=== PATIENT | male | born 1980 | race Caucasian/White ===

== ENCOUNTER 2018-06-13 05:20 | Emergency (ER) | payer MEDICAID ==
[2018-06-13 05:55] LABS: ADD MAN DIFF? NO
[2018-06-13 06:00] LABS: BASOPHILS % 0.4 % (0.0-2.0); EOSINOPHILS # 0.2 10^3/ul (0.0-0.5); EOSINOPHILS % 2.4 % (0.0-7.0); HEMATOCRIT 44.9 % (42.0-52.0); HEMOGLOBIN 15.3 g/dl (14.0-18.0); LYMPHOCYTES # 1.8 10^3/ul (0.8-2.9); LYMPHOCYTES % 22.1 % (15.0-51.0); MEAN CORPUSCULAR HEMOGLOBIN 30.1 pg (29.0-33.0); MEAN CORPUSCULAR HGB CONC 34.1 g/dl (32.0-37.0); MEAN CORPUSCULAR VOLUME 88.4 fl (82.0-101.0); MEAN PLATELET VOLUME 10.9 fl (7.4-10.4); MONOCYTE # 0.5 10^3/ul (0.3-0.9); MONOCYTES % 6.5 % (0.0-11.0); NEUTROPHIL # 5.4 10^3/ul (1.6-7.5); NEUTROPHILS % 68.1 % (39.0-77.0); PLATELET COUNT 128 10^3/UL (140-415); POSITIVE DIFF @See below; RED BLOOD COUNT 5.08 10^6/ul (4.70-6.10); RED CELL DISTRIBUTION WIDTH 13.2 % (11.5-14.5)
[2018-06-13 06:27] LABS: ANION GAP 15 (5-13); BLOOD UREA NITROGEN 13 mg/dl (7-20); CALCIUM 9.5 mg/dl (8.4-10.2); CARBON DIOXIDE 26 mmol/L (21-31); CHLORIDE 99 mmol/L (97-110); CREATININE 0.61 mg/dl (0.61-1.24); Estimated GFR > 60 mL/min (>60); GLUCOSE 118 mg/dl (70-220); POTASSIUM 3.2 mmol/L (3.5-5.1); SODIUM 140 mmol/L (135-144)
[2018-06-13] MEDS: ASPIRIN 81 MG TAB PO (06:27)
[2018-06-13] MEDS: LORAZEPAM 1 MG TAB PO (06:27)
[2018-06-13 06:34] LABS: ADD UMIC NO; UR ASCORBIC ACID NEGATIVE (NEGATIVE); UR BILIRUBIN (Dip) NEGATIVE (NEGATIVE); UR BLOOD (Dip) NEGATIVE (NEGATIVE); UR CLARITY CLEAR (CLEAR); UR COLOR YELLOW (YELLOW); UR GLUCOSE (Dip) NEGATIVE (NEGATIVE); UR KETONES (Dip) TRACE mg/dL (NEGATIVE); UR LEUKOCYTE ESTERASE (Dip) NEGATIVE Leu/ul (NEGATIVE); UR NITRITE (Dip) NEGATIVE (NEGATIVE); UR SPECIFIC GRAVITY (Dip) 1.013 (1.003-1.030); UR TOTAL PROTEIN (Dip) NEGATIVE (NEGATIVE); UR UROBILINOGEN (Dip) NEGATIVE (NEGATIVE)
[2018-06-13 06:38] LABS: TROPONIN-I < 0.012 ng/ml (0.000-0.120)
[2018-06-13 06:59] LABS: ALANINE AMINOTRANSFERASE 111 IU/L (13-69); ALBUMIN 3.9 g/dl (3.3-4.9); ALKALINE PHOSPHATASE 122 IU/L (42-121); ASPARTATE AMINO TRANSFERASE 262 IU/L (15-46); BILIRUBIN,INDIRECT 1.6 mg/dl (0-1.1); BILIRUBIN,TOTAL 1.6 mg/dl (0.2-1.3); TOTAL PROTEIN 7.5 g/dl (6.1-8.1)
[2018-06-13 07:07] LABS: AMPHETAMINE/METHAMPHETAMINE Negative (NEGATIVE); BARBITURATES Negative (NEGATIVE); BENZODIAZEPINES Negative (NEGATIVE); CANNABINOIDS Negative (NEGATIVE); COCAINE Negative (NEGATIVE); OPIATES Negative (NEGATIVE)
[2018-06-13] MEDS: POTASSIUM CHLORIDE (SR) 20 MEQ TAB PO (07:17)
[2018-06-13] MEDS: MAGNESIUM OXIDE 400 MG TAB PO (07:28)
[2018-06-13 07:58] LABS: LIPASE 73 U/L (23-300)
[2018-06-13 08:48] LABS: TROPONIN-I < 0.012 ng/ml (0.000-0.120)
== END 2018-06-13 09:53 | disposition home or self-care (01) ==
LOC: E/R 05:20
DX: R07.9 Chest pain, unspecified (principal); K70.10 Alcoholic hepatitis without ascites; R94.5 Abnormal results of liver function studies; F10.230 Alcohol dependence with withdrawal, uncomplicated; F17.210 Nicotine dependence, cigarettes, uncomplicated
CPT/HCPCS: 36415; 71045; 76705; 80048; 80076; 80307; 81003; 83690; 84484; 85025; 93005; 99285-25

== ENCOUNTER 2018-11-17 18:09 | Emergency (ER) | payer MEDICAID ==
[2018-11-17] MEDS: IBUPROFEN 800 MG TAB PO (20:27)
== END 2018-11-17 21:32 | disposition home or self-care (01) ==
LOC: E/R 18:09
DX: R07.89 Other chest pain (principal); Z87.891 Personal history of nicotine dependence
CPT/HCPCS: 71045; 93005; 99284-25

== ENCOUNTER → 2018-12-30 | Emergency (ER) | payer OTHER, MEDICAID ==
[2018-12-30 07:17] LABS: ADD MAN DIFF? NO
[2018-12-30 07:20] LABS: WHITE BLOOD COUNT 6.5 10^3/ul (4.8-10.8)
[2018-12-30 07:20] LABS: BASOPHILS % 0.6 % (0.0-2.0); EOSINOPHILS # 0.2 10^3/ul (0.0-0.5); EOSINOPHILS % 3.2 % (0.0-7.0); HEMATOCRIT 44.5 % (42.0-52.0); HEMOGLOBIN 14.7 g/dl (14.0-18.0); LYMPHOCYTES # 1.9 10^3/ul (0.8-2.9); LYMPHOCYTES % 28.6 % (15.0-51.0); MEAN CORPUSCULAR HEMOGLOBIN 28.6 pg (29.0-33.0); MEAN CORPUSCULAR VOLUME 86.6 fl (82.0-101.0); MEAN PLATELET VOLUME 11.3 fl (7.4-10.4); MONOCYTE # 0.5 10^3/ul (0.3-0.9); MONOCYTES % 8.3 % (0.0-11.0); NEUTROPHIL # 3.8 10^3/ul (1.6-7.5); NEUTROPHILS % 58.7 % (39.0-77.0); PLATELET COUNT 241 10^3/UL (140-415); RED BLOOD COUNT 5.14 10^6/ul (4.70-6.10); RED CELL DISTRIBUTION WIDTH 13.3 % (11.5-14.5)
[2018-12-30] MEDS: SOD CHLORIDE 0.9% 1,000 ML IV (07:23)
[2018-12-30] MEDS: ONDANSETRON 4 MG INJ IV (07:23)
[2018-12-30] MEDS: FAMOTIDINE 20 MG INJ IV (07:23)
[2018-12-30 07:39] LABS: ALANINE AMINOTRANSFERASE 17 IU/L (13-69); ALBUMIN 4.1 g/dl (3.3-4.9); ALKALINE PHOSPHATASE 91 IU/L (42-121); AMYLASE 149 U/L (11-123); ANION GAP 8 (5-13); ASPARTATE AMINO TRANSFERASE 18 IU/L (15-46); BILIRUBIN,INDIRECT 1.4 mg/dl (0-1.1); BILIRUBIN,TOTAL 1.4 mg/dl (0.2-1.3); BLOOD UREA NITROGEN 15 mg/dl (7-20); CALCIUM 9.2 mg/dl (8.4-10.2); CARBON DIOXIDE 30 mmol/L (21-31); CHLORIDE 107 mmol/L (97-110); CREATININE 0.64 mg/dl (0.61-1.24); Estimated GFR > 60 mL/min (>60); GLUCOSE 97 mg/dl (70-220); LIPASE 48 U/L (23-300); POTASSIUM 4.4 mmol/L (3.5-5.1); SODIUM 145 mmol/L (135-144); TOTAL PROTEIN 7.5 g/dl (6.1-8.1)
[2018-12-30 07:45] LABS: INR 0.94; PROTIME 12.7 Sec (11.9-14.9)
[2018-12-30 07:46] LABS: PARTIAL THROMBOPLASTIN TIME 29.1 Sec (23.0-35.0)
[2018-12-30 07:49] LABS: TROPONIN-I < 0.012 ng/ml (0.000-0.120)
[2018-12-30] MEDS: PANTOPRAZOLE IV 80 MG in SOD CHLORIDE 0.9% 100 ML IVPB (07:49)
[2018-12-30 07:51] LABS: B-TYPE NATRIURETIC PEPTIDE 41 PG/ML (0-125)
[2018-12-30] MEDS: BENZONATATE 100 MG CAP PO (09:52)
[2018-12-30 11:06] LABS: D-DIMER 306.73 ng/ml (<460)
== END | disposition home or self-care (01) ==
LOC: E/R 06:27
DX: R07.81 Pleurodynia (principal); R07.9 Chest pain, unspecified
CPT/HCPCS: 71045; 80053; 82150; 83690; 83880; 84484; 85025; 85378; 85610; 85730; 86850; 86900; 86901; 93005; 96374; 96375; 99285-25